=== PATIENT | female | born 1975 | race Two or more races ===

== ENCOUNTER 2020-06-06 07:41 | Day surgery (SDC) | payer OTHER ==
[~2020-06-06 07:41] MED LIST: CLONAZEPAM0.5 MG PO; CREON DR 36,001 EACH PO; DICY20TA PO; IMODIUM A-D2 M2 PO; MULTI VITAMIN1 EACH PO; PEPCID40 MG PO; POTASSIUM CHLO20 MEQ PO; PROTONIX40 MG PO; PROZAC10 MG PO; TANDEM PLUS CA1 EACH PO
== END 2020-06-06 20:30 | disposition home or self-care (01) ==
LOC: CIR.AMB 07:41
PROVIDERS: ATTEND Surgery
DX: D24.1 Benign neoplasm of right breast (principal); Z20.822 Contact with and (suspected) exposure to COVID-19